=== PATIENT | female | born 1965 | race Caucasian/White ===

== ENCOUNTER 2022-09-18 11:06 | Inpatient (IN) | payer OTHER ==
[~2022-09-18] VITALS: Ht 152.4 cm; Wt 69.4 kg
[2022-09-18 11:23] VITALS: BP 142/96
[2022-09-18 13:40] LABS: HEMATOCRIT 45.5 % (37.0-47.0); MANUAL DIFF REFLEX YES; MEAN CELL VOLUME 91.5 fl (81.0-99.0); MEAN CORPUSCULAR HGB 31.4 pg (27.0-31.0); MEAN CORPUSCULAR HGB CONC 34.3 g/dl (33.0-37.0); MEAN PLATELET VOLUME 9.6 fl (9.6-12.3); PLATELET COUNT AUTOMATED 254 10*3/uL (130-400); RED BLOOD COUNT 4.97 10*6/uL (4.10-5.10); RED CELL DISTRI WIDTH 12.7 % (0-14.5); WHITE BLOOD COUNT 21.3 10*3/uL (4.8-10.8)
[2022-09-18 13:52] LABS: ACT PARTIAL THROMBO TIME 26.6 SECONDS (20.0-32.1)
[2022-09-18 13:56] LABS: BILIRUBIN Negative (Negative); BLOOD Negative (Negative); CLARITY Cloudy (Clear); COLOR Dark Yellow (Yellow); GLUCOSE Negative (Negative); KETONE Trace (Negative); LEUKO ESTERASE Negative (Negative); NITRITE Negative (Negative); SPECIFIC GRAVITY 1.025 (1.001-1.030)
[2022-09-18 14:02] LABS: ALKALINE PHOSPHATASE 73 U/L (46-116); BUN 13 mg/dl (9-23); CHLORIDE 110 mmol/L (98-107); LIPASE 77 U/L (12-53); POTASSIUM 4.2 mmol/L (3.4-5.1); SGPT/ALT 19 U/L (10-49); TOTAL PROTEIN 7.8 gm/dL (6.0-8.0)
[2022-09-18 14:04] VITALS: BP 149/96
[2022-09-18 14:06] LABS: TOTAL CELLS COUNTED 100 #CELLS
[2022-09-18 14:07] LABS: TOXIC GRANULATION SLIGHT
[2022-09-18 14:08] LABS: OVALOCYTES FEW
[2022-09-18 14:12] LABS: ATYPICAL LYMPHS 1 % (0-0); BASOPHILS 1 % (0-1)
[2022-09-18 14:13] LABS: PLATELET SUFFICIENCY NORMAL (NORMAL)
[2022-09-18 14:19] LABS: BACTERIA 2+; RBC 0-2 rbc/hpf (0-2)
[2022-09-18] MEDS ORDERED: AMLODIPINE BESYL5 MG PO (16:10)
[2022-09-18] MEDS ORDERED: ONDANSETRON HYDR4 MG PO (16:11)
[2022-09-18] MEDS ORDERED: LISINOPRIL40 MG PO (16:11)
[2022-09-18] MEDS ORDERED: ASPIRIN ADULT L81 M1 PO (16:11)
[2022-09-18] MEDS ORDERED: OMEPRAZOLE40 MG PO (16:12)
[2022-09-18] MEDS ORDERED: XARELTO2.5 MG PO (16:12)
[2022-09-18] MEDS ORDERED: PENTOXIFYLLINE400 MG PO (16:12)
[2022-09-18] MEDS ORDERED: ATORVASTATIN CA40 M1 PO (16:12)
[2022-09-18] MEDS ORDERED: METOPROLOL SUCC25 M2 PO (16:13)
[2022-09-18 17:44] VITALS: BP 134/76
[2022-09-19] VITALS: BP 144/77; BP 148/79
[2022-09-19 04:00] VITALS: BP 144/77
[2022-09-19 06:08] LABS: HEMATOCRIT 40.2 % (37.0-47.0); MEAN CELL VOLUME 92.4 fl (81.0-99.0); MEAN CORPUSCULAR HGB 31.7 pg (27.0-31.0); MEAN CORPUSCULAR HGB CONC 34.3 g/dl (33.0-37.0); MEAN PLATELET VOLUME 9.6 fl (9.6-12.3); PLATELET COUNT AUTOMATED 197 10*3/uL (130-400); RED BLOOD COUNT 4.35 10*6/uL (4.10-5.10); RED CELL DISTRI WIDTH 12.6 % (0-14.5); WHITE BLOOD COUNT 11.1 10*3/uL (4.8-10.8)
[2022-09-19 06:19] LABS: MANUAL DIFF REFLEX YES
[2022-09-19 07:30] LABS: PLATELET SUFFICIENCY NORMAL (NORMAL); TOTAL CELLS COUNTED 100 #CELLS
[2022-09-19 07:45] LABS: ALKALINE PHOSPHATASE 61 U/L (46-116); BUN 10 mg/dl (9-23); CHLORIDE 112 mmol/L (98-107); CHOLESTEROL 109 mg/dL (<200); FREE T4 1.12 ng/dl (0.89-1.76); LDL CHOLESTEROL 35 mg/dL (9-159); SGPT/ALT 15 U/L (10-49); TOTAL PROTEIN 6.5 gm/dL (6.0-8.0); TRIGLYCERIDES 248 mg/dl (<150)
[2022-09-19 07:58] LABS: VITAMIN D, 25-HYDROXY 13.3 ng/mL (30-100)
[2022-09-19] MEDS ORDERED: MACROBID100 M1 PO (09:32)
[2022-09-19] MEDS ORDERED: ONDANSETRON HYDR4 MG PO (09:32)
== END 2022-09-19 10:15 | disposition home or self-care (01) | DRG 720 ==
LOC: ED 11:06 → EDHOLD 16:41
PROVIDERS: Family Medicine; Internal Medicine; ADMIT Internal Medicine; ATTEND Internal Medicine
DX: A41.9 Sepsis, unspecified organism (principal); R65.20 Severe sepsis without septic shock; K42.9 Umbilical hernia without obstruction or gangrene; Z66 Do not resuscitate; E87.20 Acidosis, unspecified; Z51.5 Encounter for palliative care; D35.00 Benign neoplasm of unspecified adrenal gland; K76.0 Fatty (change of) liver, not elsewhere classified; R63.4 Abnormal weight loss; E87.8 Other disorders of electrolyte and fluid balance, not elsewhere classified; R73.9 Hyperglycemia, unspecified; D75.89 Other specified diseases of blood and blood-forming organs; N30.00 Acute cystitis without hematuria; I10 Essential (primary) hypertension; F17.210 Nicotine dependence, cigarettes, uncomplicated; K21.9 Gastro-esophageal reflux disease without esophagitis; K64.9 Unspecified hemorrhoids; Z79.82 Long term (current) use of aspirin; Z71.6 Tobacco abuse counseling; Z79.899 Other long term (current) drug therapy

== ENCOUNTER → 2022-09-30 | Outpatient (CLI) | payer OTHER ==
[~2022-09-30] MED LIST: AMLODIPINE BESYL5 MG PO; ASPIRIN ADULT L81 M1 PO; ATORVASTATIN CA40 M1 PO; LISINOPRIL40 MG PO; MACROBID100 M1 PO; METOPROLOL SUCC25 M2 PO; OMEPRAZOLE40 MG PO; ONDANSETRON HYDR4 MG PO; PENTOXIFYLLINE400 MG PO; XARELTO2.5 MG PO
== END | disposition home or self-care (01) ==
LOC: RESCLI 01:06
PROVIDERS: ATTEND Internal Medicine
DX: M54.9 Dorsalgia, unspecified (principal); I10 Essential (primary) hypertension; Z98.890 Other specified postprocedural states; F17.210 Nicotine dependence, cigarettes, uncomplicated; Z79.899 Other long term (current) drug therapy

== ENCOUNTER → 2022-10-30 | Outpatient (CLI) | payer OTHER | END | disposition home or self-care (01) | LOC: RESCLI 02:21 | PROVIDERS: ATTEND Internal Medicine | DX: N75.0 Cyst of Bartholin's gland (principal); Z12.31 Encounter for screening mammogram for malignant neoplasm of breast; M54.9 Dorsalgia, unspecified; G43.909 Migraine, unspecified, not intractable, without status migrainosus; I67.1 Cerebral aneurysm, nonruptured; Z98.890 Other specified postprocedural states; Z79.899 Other long term (current) drug therapy ==